=== PATIENT | male | born 2000 | race Caucasian/White ===

== ENCOUNTER 2020-07-04 04:02 | Emergency (ER) | payer OTHER ==
--- NOTE | 2020-07-04 04:04 | ED Physician Documentation ---
PD HPI URI - Stated complaint Stated Complaint: COUGH/STUFFY NOSE - History obtained from History obtained from: Patient - History of Present Illness Timing - onset: Yesterday Timing details: Gradual onset Associated symptoms: No: Fever, Chills, Sweats Similar symptoms before: Has not had sx before Recently seen: Not recently seen - Additional information Additional information: patient was on duty at [facility] this morning when he had increasingly frequent cough (started yesterday) and thus sent by command to ED "to get tested for COVID" (per patient). He says he was exposed to someone at [facility] who also has a cough but whose COVID test result is pending. Review of Systems Constitutional: denies: Fever, Chills, Sweats Nose: reports: Congestion Throat: denies: Sore throat Cardiac: denies: Chest pain / pressure Respiratory: reports: Cough. denies: Dyspnea, Hemoptysis, Wheezing PD PAST MEDICAL HISTORY - Past Medical History Cardiovascular: None Respiratory: None Neuro: None Endocrine/Autoimmune: None GI: None : None HEENT: None Psych: None Musculoskeletal: None Derm: None - Past Surgical History Past Surgical History: No - Present Medications Home Medications: Ambulatory Orders Medication Instructions Recorded Confirmed Cetirizine [ZyrTEC] 10 mg PO DAILY #15 tablet 07/18/19 dexAMETHasone [Decadron] 4 mg PO DAILY #5 tablet 07/18/19 - Allergies Allergies/Adverse Reactions: Allergies Allergy/AdvReac Type Severity Reaction Status Date / Time No Known Drug Allergies Allergy Verified 07/18/19 16:35 - Social History Does the pt smoke?: No Smoking Status: Never smoker Does the pt drink ETOH?: Yes Does the pt have substance abuse?: No - Immunizations Immunizations are current?: Yes - POLST Patient has POLST: No PD ED PE NORMAL - Vitals Vital signs reviewed: Yes - General General: Alert and oriented X 3, No acute distress, Well developed/nourished - HEENT HEENT: Moist mucous membranes, Pharynx benign (trace posterior oropharyngeal erythema; no exudate or edema) - Neck Neck: Supple, no meningeal sign - Cardiac Cardiac: RRR, No murmur - Respiratory Respiratory: No respiratory distress, Clear bilaterally Results - Vitals Vitals: Vital Signs - 24 hr 07/04/20 04:04 Temperature 37.0 C Heart Rate 77 Respiratory 18 Rate Blood Pressure 151/96 H O2 Saturation 97 Oxygen O2 Source Room air PD MEDICAL DECISION MAKING - ED course Complexity details: considered differential, d/w patient ED course: well-appearing although occasional dry cough during H+P. lungs are CTA bilaterally . Will test for COVID and advised to stay out of work and stay home until result available, and that he will need to obtain follow up even if result is negative, particularly if he continues to have any symptoms. Departure - Departure Disposition: 01 Home, Self Care Clinical Impression: Upper respiratory infection Condition: Good Instructions: ED Upper Resp Infec No Abx Tx Follow-Up: CARLOS Garzon [Provider Group] Forms: Activity restrictions Discharge Date/Time: 07/04/20 05:25
[2020-07-04 04:08] VITALS: BP 151/96
== END 2020-07-04 05:25 | disposition home or self-care (01) ==
LOC: ED 04:02
DX: N39.0 Urinary tract infection, site not specified (principal); Z20.828 Contact with and (suspected) exposure to other viral communicable diseases
CPT/HCPCS: 99282; 99283

== ENCOUNTER 2021-04-11 18:28 | Emergency (ER) | payer OTHER ==
[2021-04-11] MEDS ORDERED: ALBUTEROL 1 PUFF INH STA (19:17)
--- NOTE | 2021-04-11 19:24 | ED Physician Documentation ---
History of Present Illness - Stated complaint Stated Complaint: COUGH,SOA,FEVER,LOSS OF TASTE - Chief complaint Chief Complaint: Heent - History obtained from History obtained from: Patient - History of Present Illness Pain level max: 0 Pain level now: 0 - Additonal information Additional information: 20-year-old male presents to the emergency department with cough, body aches, fever. He has been exposed to Covid. States he feels mildly short of breath. Did not get his Covid vaccination. He is active duty [employer]. Review of Systems Constitutional: reports: Fever Throat: denies: Sore throat Cardiac: denies: Chest pain / pressure Respiratory: reports: Dyspnea, Cough. denies: Wheezing Skin: denies: Rash Musculoskeletal: denies: Neck pain, Back pain Neurologic: denies: Headache PD PAST MEDICAL HISTORY - Past Medical History Cardiovascular: None Respiratory: None Neuro: None Endocrine/Autoimmune: None GI: None : None HEENT: None Psych: None Musculoskeletal: None Derm: None - Past Surgical History Past Surgical History: No - Present Medications Home Medications: Ambulatory Orders Medication Instructions Recorded Confirmed Albuterol Sulf [Ventolin Hfa 1 - 2 puffs INH Q4HR PRN #1 inhaler 04/11/21 Inhaler] - Allergies Allergies/Adverse Reactions: Allergies Allergy/AdvReac Type Severity Reaction Status Date / Time No Known Drug Allergies Allergy Verified 07/18/19 16:35 - Social History Does the pt smoke?: No Smoking Status: Never smoker Does the pt drink ETOH?: Yes Does the pt have substance abuse?: No - Immunizations Immunizations are current?: Yes - POLST Patient has POLST: No PD ED PE NORMAL - Vitals Vital signs reviewed: Yes - General General: Alert and oriented X 3, No acute distress - HEENT HEENT: Moist mucous membranes - Neck Neck: Supple, no meningeal sign - Cardiac Cardiac: RRR - Respiratory Respiratory: No respiratory distress, Other (Mild wheeze bilaterally) - Abdomen Abdomen: Soft, Non tender, Non distended - Derm Derm: Warm and dry - Extremities Extremities: No edema - Neuro Neuro: Alert and oriented X 3 Results - Vitals Vitals: Vital Signs - 24 hr 04/11/21 04/11/21 04/11/21 18:40 19:40 20:17 Temperature 37.0 C Heart Rate 94 89 84 Respiratory 20 20 18 Rate Blood Pressure 121/84 H 119/77 O2 Saturation 97 96 Oxygen O2 Source Room air - Rads (name of study) Chest x-ray Radiology: Final report received, EMP read contemporaneously, See rad report (Minor patchy bilateral alveolar opacities consistent with viral pneumonitis. ) PD MEDICAL DECISION MAKING - ED course Complexity details: reviewed results, re-evaluated patient, considered di fferential, d/w patient ED course: Patient with COVID-19. Confirmatory test sent. Chest x-ray and symptoms consistent with COVID-19. Improved with albuterol here. No respiratory distress. No hypoxia. Patient would be a candidate for monoclonal antibody therapy if positive test tomorrow, not available at this time of night. Recommend he return tomorrow if he would like to have this done. Patient would need to be here between the hours of 8 and 3. Patient counseled regarding signs and symptoms for which I believe and urgent re-evaluation would be necessary. David navarrete with good understanding of and agreement to plan and is comfortable going home at this time This document was made in part using voice recognition software. While efforts are made to proofread this document, sound alike and grammatical errors may occur. Departure - Departure Disposition: 01 Home, Self Care Clinical Impression: COVID-19 Condition: Good Instructions: COVID-19 [facility], COVID-19 [facility] Department Statement Follow-Up: MILAGROS REYES MD [Primary Care Provider] - Prescriptions: Albuterol Sulf [Ventolin Hfa Inhaler] 1 - 2 puffs INH Q4HR PRN #1 inhaler PRN Reason: Shortness Of Air/Wheezing Comments: Your Covid test is pending, but your symptoms are consistent with COVID-19 and your x-ray is consistent with COVID-19 today as well. You can use the albuterol at home. You need to maintain yourself in quarantine until symptoms have resolved and you have a negative Covid test. You are a candidate for monoclonal antibody therapy if your test is positive. If you choose to have this done, you can return to the emergency department between 8 AM and 3 PM within 10 days of symptom onset to have this performed. Return if you worsen. You can check your Covid test results on the patient portal, they should be back tomorrow. Discharge Date/Time: 04/11/21 20:36
--- NOTE | 2021-04-11 20:06 | XRAY Report ---
PROCEDURE: Chest 1 View X-Ray INDICATIONS: cough, covid+ TECHNIQUE: One view of the chest was acquired. COMPARISON: None FINDINGS: Surgical changes and devices: None. Lungs and pleura: Small multifocal bilateral alveolar opacities. No pleural effusion or pneumothorax. Mediastinum: Mediastinal contours appear normal. Heart size is normal. Bones and chest wall: No suspicious bony lesions. Overlying soft tissues appear unremarkable. IMPRESSION: Minor patchy bilateral alveolar opacities consistent with viral pneumonitis. Reviewed by: Angela Parnell MD on 04/11/2021 8:05 PM PDT Approved by: Angela Parnell MD on 04/11/2021 8:05 PM PDT Station ID: [id number]
[2021-04-11 20:18] VITALS: BP 119/77
== END 2021-04-11 20:36 | disposition home or self-care (01) ==
LOC: ED 18:28
DX: U07.1 COVID-19 (principal)
CPT/HCPCS: 94640; 99283; 99284

== ENCOUNTER 2022-02-15 12:34 | Outpatient (CLI) | payer OTHER ==
[2022-02-15 13:58] VITALS: BP 124/75
--- NOTE | 2022-02-15 13:58 | SLEEP CARE CONSULTATION ---
Information from patient questionnaire entered by Ian French MA. I have reviewed and concur with the information entered by Ian French MA. This document represents the service I personally performed and the decisions made by me, Dana Sharif ARNP. History of Present Illness Service Date and Time: 02/15/2022 1234 Reason for Visit: New patient (ONSET 08/04/2021, ) Chief Complaint: reports: Unrefreshed sleep, Snoring, Excessive daytime sleepiness, Fatigue, Frequent awakenings at night Date of Onset: 2 YEARS Usual bedtime: 10 - 12 PM Time it takes to fall asleep: 30 MINUTES Snores at night: Yes (roommates can hear him downstairs) Observed to quit breathing while asleep: No Number of times waking at night: 5 Reasons for waking at night: reports: Choking (rarely remember them), Snoring, Gasping for air, Other (noise, unknown reason) Toss, Turn, or Twitch while sleeping: Yes Recalls having dreams: No Usually gets out of bed at: 0400 Feels refreshed in the morning: No Morning headache: Yes (almost every morning for about an hour) Sleepy or fatigued during the day: Yes Ever fallen asleep while driving: Yes (has swerved out of [place], no accidents yet) Takes day naps: Yes (twice a week for 1-2 hours) Dreams during day naps: No Prior sleep studies: No Additional HPI information: I had the pleasure of seeing LISBETH MARION today regarding the possibility of him having a sleep disorder. His current complaints are unrefreshed sleep, snoring, excessive daytime sleepiness, fatigue and frequent night awakenings. Patient states he does not sleep well. He is able to go to sleep in 30 minutes initially but will wake up many times during the night. When he gets up in the morning he is not rested. He tries to take a nap every day but only manages to get a nap twice a week. He snores loudly and his roommates tell them they can hear him downstairs in their rooms. He is very sleepy during the day and has had some times where he swerved out of the [place] and hit the rumble strips that woke him up.His mother and some grandparents have sleep apnea and do you have CPAP machines. - Parasomnia Symptoms Ever been unable to move upon waking from sleep: No Walks in sleep: Yes Talks in sleep: Yes Ever acted out dreams in sleep: Yes (hitting a wall) Ever felt weak in the knees when startled or emotional: No Bothered by creepy, crawly, restless sensations in legs: No Problems with memory or concentration: No Subjective Initial Lismore Sleepiness Scale score: 18 (02/15/2022) Social History The patient's occupation is a AM. Patient is Single and lives in . Have you smoked in the past 12 months: No Alcohol use: Yes Alcohol amount and frequency: 2 X WEEKLY Caffeine use: Yes Caffeine amount and frequency: 1-2 DAILY Family History Family history of sleep disordered breathing: Yes Family Hx Sleep Apnea: Mother: Snoring, Sleep apnea - Treated, Father: Snoring, Grandparent: Snoring, Sleep apnea - Treated Allergies and Home Medications Drug allergies reviewed: Yes (NKDA) Home medication list reviewed: Yes (Ibuprofen, prn) Allergy and home medication list: Allergies No Known Drug Allergies Allergy (Verified 02/03/22 17:42) Review of Systems Weight gain over past 5 years: 50 lb Neurological: reports: headaches. denies: head trauma Psychiatric: denies: anxiety, depression Ear/Nose/Throat: reports: wisdom teeth removed. denies: sinus problems, tonsillectomy Endocrine: reports: sluggishness Musculoskeletal: reports: joint pain, back pain Physical Exam Vital signs obtained and entered by: Shlomo FRENCH CMA AAANJELICA Blood Pressure: 124/75 (RESP 16, PULSE 87, RIGHT,) Heart Rate: 87 O2 Saturation: 97 (PAPER MASK) Height: 6 ft 3 in Weight: 278 lb Body Mass Index: 34.7 BMI Classification: Obese Neck circumference: 16 (INCHES) Mouth and throat: narrow oropharynx Soft palate: long Hard palate: arched Uvula: normal Uvula visualization: 50% Mallampati Class II Tongue: enlarged in size with teeth trejo on lateral edges Tonsils: small Neck: normal w/o lymphadenopathy or thyromegaly Heart: regular rate and rhythm Lungs: clear bilaterally Impression and Plan 1. Suspected Obstructive Sleep Apnea-Hypopnea Syndrome, as suggested by a history of loud and irregular snoring, gasping or choking in sleep, morning headache, frequent awakening during the night, unrefreshed sleep, and excessive daytime sleepiness. Narrow oropharynx and obesity are common predisposing factors for obstructive sleep apnea-hypopnea syndrome. I recommend proceeding to polysomnography to confirm the diagnosis and to assess severity. If the patient has significant sleep disordered breathing, a manual CPAP titration study will also be performed to find the optimal treatment pressure. I informed the patient of what the sleep studies involve and after some discussion, obtained agreement to proceed. The pathophysiology of obstructive sleep apnea-hypopnea syndrome was discussed with the patient and health risks of cardiovascular and cerebrovascular disease if not treated. Risks of drowsy driving discussed in detail and patient advised to avoid long distance driving and to government affairs specialist at the first sign of drowsiness. Patient agreed to plan. * Schedule polysomnography * Avoid long distance driving or driving when feeling sleepy. * Avoid alcohol, sedative and muscle relaxant around bedtime. * Attempt to lose weight. * Review instructions provided by trained office staff on how to prepare for the sleep study. * Return for follow-up after sleep study completed. Counseling Topics: Weight loss health impact Visit Type: In Office Time Spent with Patient (minutes): 30 Provider Statement: I spent 100% of the Face to Face Visit with the patient with greater than 50% spent counseling the patient and coordination of care.
== END 2022-02-15 12:35 | disposition home or self-care (01) ==
LOC: SC 12:34
PROVIDERS: ATTEND Nurse Practitioner Family
DX: R06.83 Snoring (principal); G47.8 Other sleep disorders; R51.9 Headache, unspecified; G47.10 Hypersomnia, unspecified; R53.83 Other fatigue; E66.9 Obesity, unspecified; Z68.34 Body mass index [BMI] 34.0-34.9, adult
CPT/HCPCS: 99203; 99212

== ENCOUNTER 2022-03-01 08:31 | Outpatient (CLI) | payer OTHER | END 2022-03-01 08:32 | disposition home or self-care (01) | LOC: SC 08:31 | PROVIDERS: ATTEND Nurse Practitioner Family | DX: R06.83 Snoring (principal); G47.8 Other sleep disorders; R51.9 Headache, unspecified; R53.83 Other fatigue; G47.10 Hypersomnia, unspecified | CPT/HCPCS: 95806 ==

== ENCOUNTER 2022-03-29 14:04 | Outpatient (CLI) | payer OTHER ==
[2022-03-29 14:44] VITALS: BP 111/77
--- NOTE | 2022-03-29 14:44 | SLEEP CARE CONSULTATION ---
Information from patient questionnaire entered by Ian Gaviria MA. I have reviewed and concur with the information entered by Ian Gaviria MA. This document represents the service I personally performed and the decisions made by , Dana Sharif ARNP. History of Present Illness Service Date and Time: 03/29/2022 1404 Initial Fletcher Sleepiness Scale score: 18 (02/15/2022) Current Fletcher Sleepiness Scale score: 18 (03/29/2022) Additional HPI information: LISBETH MARION returns for follow up and results of the recently performed home sleep study. The patient was informed of the following findings: No significant sleep dis ordered breathing with an average AHI of 2.2 and valentina oxygen saturation of 91%. His supine AHI was 4.9. I explained the pathophysiology behind obstructive sleep apnea. Patient does not have sleep apnea and was advised how weight gain could increase the risk of developing sleep apnea in the future. I strongly encouraged the patient to lose weight. Patient has moderate snoring. Snoring can be reduced by weight loss. Weight loss is best achieved with diet consult. Patient instructed to contact PCP for referral. Snoring can also be treated with an oral appliance from a dentist. Advised to check insurance coverage. In addition, an ENT evaluation can be do to see if other treatment is indicated. Patient counseled not drink alcohol less than 4 hours before bedtime as it can increase snoring and apnea. Patient was cautioned about risks of drowsy driving until sleepiness symptoms resolve. Patient denies drowsy driving. Sleep Study - Results Type of Sleep Study: Home sleep study (F/U HST, 03/02/2022 [facility], [place] Prior sleep studies: No Polysomnography/Home Sleep Study results: Physician Impression: The quality of the study is good. The length of the study is adequate (> 240 minutes). Please also see the tabulated and graphic data. 1. No significant sleep disordered breathing, with an AHI of 2.2/hr and valentina SaO2 of 91%. During the study, the patient had 8 apneas (8 obstructive, 0 central, 0 mixed) and 7 hypopneas. The longest episode lasted 61.5 seconds. The few respiratory events occurred mainly during supine sleep (supine AHI was 4.9 and non-supine, 1.91) Allergies and Home Medications Known drug allergies: No Drug allergies reviewed: Yes Home medication list reviewed: Yes (no changes) Allergy and home medication list: Allergies No Known Drug Allergies Allergy (Verified 02/03/22 17:42) Review of Systems Review of systems same as previous: Yes (no changes) Physical Exam Vital signs obtained and entered by: JOSIAS PALACIOS Blood Pressure: 111/77 (RSP 18, PULSE 84, RIGHT,) Cuff size: wrist Heart Rate: 83 O2 Saturation: 98 (PAPER MASK) Height: 6 ft 3 in Weight: 280 lb (CLOTHES) Body Mass Index: 34.9 BMI Classification: Obese Impression and Plan Snoring but no significant sleep disordered breathing. Patient advised that often weight loss will reduce snoring as well as apnea risk. An oral appliance can also be used for snoring. This would require a dental consultation. Patient cautioned not to use other online appliances as can cause bite issues. A list of accredited dentists in area and one local dentist who makes oral appliances is available in office. Patient is advised to check if insurance will cover. An ENT consult can also be helpful to determine if any other treatment is an option. * Attempt to lose weight * Avoid alcohol consumption near bedtime * Return as needed. Counseling Topics: Weight loss health impact Visit Type: In Office Time Spent with Patient (minutes): 15 Provider Statement: I spent 100% of the Face to Face Visit with the patient with greater than 50% spent counseling the patient and coordination of care.
== END 2022-03-29 14:05 | disposition home or self-care (01) ==
LOC: SC 14:04
PROVIDERS: ATTEND Nurse Practitioner Family
DX: R06.83 Snoring (principal); E66.9 Obesity, unspecified; Z68.34 Body mass index [BMI] 34.0-34.9, adult
CPT/HCPCS: 99212